=== PATIENT | female | born 1990 | race Caucasian/White ===

== ENCOUNTER → 2017-10-25 12:08 | Outpatient (CLI) | payer BC, SELFPAY ==
--- NOTE | 2017-10-25 | DI.US.S_ITS ---
PROCEDURE: US OB >= 14 WEEKS FETUS INDICATIONS: 20 WEEK ANATOMIC SURVEY OUTSIDE/PRIOR DATING DATA: Last menstrual period (LMP): Unknown. LMP-based estimated date of delivery (ASMITA): N./A.. First dating scan (date and location): 09/14/2017. Estimated date of delivery (ASMITA) from first dating scan: 03/06/2819. TECHNIQUE: Real-time scanning was performed of the fetus, with image documentation and biometric measurements. Endovaginal scanning: None required COMPARISON: 09/29/2017 FINDINGS: General: A single living intrauterine gestation is present. Presentation: Transverse with head to the maternal left. Placenta: Placental position is anterior, without previa. Placental margin is 1.8 cm from the internal os. Amniotic fluid index: 14.6 cm, normal range is 5-24 cm. heart rate: 149 beats per minute. Maternal cervical canal: 5.7 cm long. Normal lower limit is 2.5 cm. biometrics: Biparietal diameter: 20 weeks one day Head circumference: 20 weeks one day Abdominal circumference: 21 weeks 3 days Femur length: 20 weeks one day Estimated gestational age from initial scan: 21 weeks one day Composite gestational age from present scan: 20 weeks 3 days, normal growth Estimated weight and percentile: 371 g at the 23rd percentile Measurement variability for biometric dating: +/- 7 days from 14 weeks to 15 weeks 6 days gestation, +/- 10 days from 16 weeks to 21 weeks 6 days gestation, +/- 2 weeks from 22 weeks to 27 weeks 6 days gestation, +/- 3 weeks for 28 weeks gestation or later. weight reference: 4500 g or EFW >90/95% is considered macrosomia or large for gestational age. EFW <10% is small for gestational age. EFW 5% or less is considered intra-uterine growth restriction. Anatomic survey: Neuro: Ventricles are non-dilated at less than 10 mm. Cisterna magna is normal at 3-11 mm. Cerebellum is normal in size and morphology. Nuchal skin fold: Normal at less than 6 mm between 14-21 weeks gestational age. Face: Nose and lips, facial profile are normal. Spine: No evidence for spina bifida. Heart: 4-chambered heart is present, with normal ventricular outflow tracts. Diaphragm: Diaphragm is intact. Stomach: Left-sided stomach is present. Kidneys: No hydronephrosis. Normal is less than 5 mm in 2nd trimester, less than 7 mm in 3rd trimester. Cord: 3-vessel cord has orthotopic insertion. Bladder: Normal in size. Extremities: All 4 extremities identified. IMPRESSION: Single, live intrauterine gestation in mobile position showing composite gestational age of 20 weeks 3 days, normal growth and normal anatomy. Anterior placental margin is 1.8 cm from the internal os Dictated by: Gage Shepard M.D. on 10/25/2017 at 14:18 Approved by: Gage Shepard M.D. on 10/25/2017 at 14:23
== END ==
PROVIDERS: Family Provider Specialist; PCP Specialist; Visit Provider Specialist
DX: Z34.92 Encounter for supervision of normal pregnancy, unspecified, second trimester (principal); Z3A.20 20 weeks gestation of pregnancy
CPT/HCPCS: 76811